=== PATIENT | male | born 1975 | race Asian ===

== ENCOUNTER 2023-10-30 12:28 | Inpatient (IN) | payer OTHER ==
[2023-10-30] VITALS (11 sets, daily range): BP systolic 105–155; BP diastolic 40–91; PULSE 86–100; RESP 15–28; TEMP 97.7–98.3
[~2023-10-30] VITALS: Ht 180.3 cm; Wt 109.0 kg
[2023-10-30] MEDS ORDERED: ATORVASTATIN CALCIUM 40 MG TABLET PO ONE (12:45)
[2023-10-30] MEDS ORDERED: TICAGRELOR 90 MG TABLET PO ONE (12:45)
[2023-10-30] MEDS ORDERED: ASPIRIN 325 MG TABLET PO ONE (12:45)
[2023-10-30] MEDS ORDERED: HEPARIN SODIUM,PORCINE 5,000 UNITS/ML VIAL IVP ONE (12:45)
[2023-10-30 12:48] LABS: EOSINOPHILS % (AUTO) 1.1 % (1.0-6.0); HEMATOCRIT 43.7 % (41-53); HEMOGLOBIN 14.5 g/dL (13.5-17.5); LYMPHOCYTES % (AUTO) 18.6 % (22.0-44.0); MEAN CORPUSCULAR HEMOGLOBIN 30.2 pg (26.0-34.0); MEAN CORPUSCULAR HGB CONC 33.2 G/dL (31.0-37.0); MEAN CORPUSCULAR VOLUME 91 fL (80-100); MONOCYTES # (AUTO) 0.9 K/uL (0.1-1.0); NEUTROPHILS # (AUTO) 7.7 K/uL (1.8-7.7); NEUTROPHILS % (AUTO) 71.3 % (40.0-70.0); PLATELET COUNT (AUTO) 282 K/uL (150-450); RED BLOOD CELL COUNT(AUTO) 4.81 MIL/uL (4.50-5.90); RED CELL DISTRIBUTION WIDTH 14.2 % (11.5-14.5); WHITE BLOOD COUNT (AUTO) 10.7 K/uL (4.5-11.0)
[2023-10-30] MEDS ORDERED: AMLO-257 PO (12:56)
[2023-10-30] MEDS ORDERED: ALLO-97 PO (12:56)
[2023-10-30 13:01] LABS: PROTHROMBIN TIME 10.3 SEC (9.4-11.6)
[2023-10-30 13:03] LABS: ANION GAP 9 mmol/L (8-16); CALCIUM, TOTAL 9.1 mg/dL (8.8-10.5); CARBON DIOXIDE 26 mmol/L (22-29); CHLORIDE 103 mmol/L (98-107); CREATININE 1.26 mg/dL (0.60-1.30); GLOMERULAR FILTR. RATE CALC > 60 mL/min (>60); GLUCOSE,RANDOM 156 mg/dL (70-110); POTASSIUM 3.7 mmol/L (3.5-5.1); SODIUM SERUM 138 mmol/L (136-145); UREA NITROGEN, BLOOD 12 mg/dL (7-18)
[2023-10-30 13:09] LABS: ALANINE AMINOTRANSFERASE 37 U/L (12-78); ALBUMIN 3.8 g/dL (3.4-5.0); ALKALINE PHOSPHATASE 84 U/L (46-116); ASPARTATE AMINOTRANSFERASE 26 U/L (15-37); BILIRUBIN,TOTAL 0.5 mg/dL (0.1-1.0); TOTAL PROTEIN, SERUM 8.4 g/dL (6.4-8.2)
[2023-10-30 13:11] LABS: B-TYPE NATRIURETIC PEPTIDE 14 pg/mL (0-100); TROPONIN I-HIGH SENSITIVITY 30 ng/L (<76)
[2023-10-30] MEDS ORDERED: MORPHINE SULFATE 2 MG/ML SYRINGE IVP ONE (13:15)
[2023-10-30] MEDS ORDERED: FentaNYL CITRATE PF 100 MCG/2 ML VIAL ONE ×2 (13:22→14:23)
[2023-10-30] MEDS ORDERED: MIDAZOLAM HCL 2 MG/2 ML VIAL ONE (13:22)
[2023-10-30] MEDS ORDERED: FentaNYL CITRATE PF 100 MCG/2 ML VIAL IVP ONE ×3 (13:45→14:30)
[2023-10-30] MEDS ORDERED: NITROGLYCERIN/D5W 50 MG/250 ML IV BOTTLE IARTER ONE (13:45)
[2023-10-30] MEDS ORDERED: HEPARIN SODIUM,PORCINE 1,000 UNITS/ML 10 ML VIAL IVP ONE (13:45)
[2023-10-30] MEDS ORDERED: MIDAZOLAM HCL 2 MG/2 ML VIAL IVP ONE (13:45)
[2023-10-30] MEDS ORDERED: IOHEXOL 300 MG/ML 100 ML VIAL IARTER ONE ×2 (13:45→14:15)
[2023-10-30] MEDS ORDERED: LIDOCAINE 1% 30 ML/SOD BICARB 8.4% 4 ML SQ ONE (13:45)
[2023-10-30] MEDS ORDERED: HEPARIN SODIUM,PORCINE 1,000 UNITS/ML 10 ML VIAL IARTER ONE (13:45)
[2023-10-30] MEDS ORDERED: VERAPAMIL HCL 2.5 MG/ML 2 ML VIAL IARTER ONE (13:45)
[2023-10-30] MEDS ORDERED: HEPARIN SODIUM 1000 UNITS/NS 1,000 ML IARTER ONE (13:45)
[2023-10-30] MEDS ORDERED: PHENYLEPHRINE HCL IN 0.9% NACL 400 MCG/10 ML SYRINGE IVP ONE (13:49)
[2023-10-30] MEDS ORDERED: NITROGLYCERIN 400 MCG/SUBLINGUAL SPRAY 4.9 GM BOTTLE SL ONE ×2 (14:22→14:30)
[2023-10-30] MEDS ORDERED: LIDOCAINE/PF 1% 30 ML VIAL ONE (14:27)
[2023-10-30] MEDS ORDERED: HEPARIN SODIUM 1000 UNITS/NS 1,000 ML ONE (14:27)
[2023-10-30] MEDS ORDERED: SODIUM BICARBONATE 50 MEQ/50 ML VIAL ONE (14:27)
[2023-10-30] MEDS ORDERED: IOHEXOL 300 MG/ML 100 ML VIAL ONE (14:27)
[2023-10-30] MEDS ORDERED: VERAPAMIL HCL 2.5 MG/ML 2 ML VIAL ONE (14:29)
[2023-10-30] MEDS ORDERED: NITROGLYCERIN 50 MG/D5% WATER 250 ML ONE (14:29)
[2023-10-30] MEDS ORDERED: MAGNESIUM HYDROXIDE SUSPENSION 30 ML UDCUP PO PRN (15:00)
[2023-10-30] MEDS ORDERED: ONDANSETRON HCL 4 MG/2 ML VIAL IVP PRN (15:00)
[2023-10-30] MEDS ORDERED: ZOLPIDEM TARTRATE 5 MG TABLET PO PRN (15:00)
[2023-10-30] MEDS ORDERED: HYDROCODONE/ACETAMINOPHEN 5-325 MG TABLET PO PRN (15:00)
[2023-10-30] MEDS ORDERED: ACETAMINOPHEN 325 MG TABLET PO PRN (15:00)
[2023-10-30] MEDS ORDERED: BISACODYL 10 MG RECTAL RECTAL SUPPOSITORY PR PRN (15:00)
[2023-10-30] MEDS ORDERED: MORPHINE SULFATE 2 MG/ML SYRINGE IVP PRN (15:00)
[2023-10-30] MEDS: DOCUSATE SODIUM 100 MG CAPSULE PO SCH (20:34)
[2023-10-30] MEDS: METOPROLOL TARTRATE 25 MG TABLET PO SCH (20:35)
[2023-10-30] MEDS: TICAGRELOR 90 MG TABLET PO SCH (20:35)
[2023-10-30 21:41] LABS: TROPONIN I-HIGH SENSITIVITY > 25000 ng/L (<76)
[2023-10-30] MEDS ORDERED: MAGNESIUM SULFATE 4 GM/WATER 100 ML IV PRN (22:00)
[2023-10-30] MEDS ORDERED: POTASSIUM CHLORIDE 20 MEQ ER TABLET PO PRN ×2 (22:00)
[2023-10-30] MEDS ORDERED: POTASSIUM CHL 10 MEQ/WATER 50 ML IV PRN (22:00)
[2023-10-30] MEDS ORDERED: MAGNESIUM SULFATE 2 GM/WATER 50 ML IV PRN (22:00)
[2023-10-30 22:03] LABS: ANION GAP 13 mmol/L (8-16); CALCIUM, TOTAL 9.1 mg/dL (8.8-10.5); CARBON DIOXIDE 22 mmol/L (22-29); CHLORIDE 106 mmol/L (98-107); CREATININE 1.22 mg/dL (0.60-1.30); GLOMERULAR FILTR. RATE CALC > 60 mL/min (>60); GLUCOSE,RANDOM 146 mg/dL (70-110); POTASSIUM 4.3 mmol/L (3.5-5.1); SODIUM SERUM 141 mmol/L (136-145); UREA NITROGEN, BLOOD 12 mg/dL (7-18)
[2023-10-31] VITALS (8 sets, daily range): BP systolic 102–114; BP diastolic 65–73; PULSE 84–103; RESP 16–19; TEMP 98.4–98.8
[2023-10-31] MEDS ORDERED: SODIUM CHLORIDE 0.9% 250 ML IV ONE (00:11)
[2023-10-31 05:59] LABS: BASOPHILS % (AUTO) 0.2 % (0.0-2.0); EOSINOPHILS % (AUTO) 0.1 % (1.0-6.0); HEMATOCRIT 43.7 % (41-53); HEMOGLOBIN 14.7 g/dL (13.5-17.5); LYMPHOCYTES # (AUTO) 1.3 K/uL (1.0-4.8); LYMPHOCYTES % (AUTO) 8.3 % (22.0-44.0); MEAN CORPUSCULAR HEMOGLOBIN 30.5 pg (26.0-34.0); MEAN CORPUSCULAR HGB CONC 33.7 G/dL (31.0-37.0); MEAN CORPUSCULAR VOLUME 91 fL (80-100); MONOCYTES % (AUTO) 6.3 % (2.0-9.0); NEUTROPHILS # (AUTO) 13.4 K/uL (1.8-7.7); NEUTROPHILS % (AUTO) 85.1 % (40.0-70.0); PLATELET COUNT (AUTO) 288 K/uL (150-450); RED BLOOD CELL COUNT(AUTO) 4.82 MIL/uL (4.50-5.90); RED CELL DISTRIBUTION WIDTH 14.2 % (11.5-14.5); WHITE BLOOD COUNT (AUTO) 15.7 K/uL (4.5-11.0)
[2023-10-31 06:09] LABS: HEMOGLOBIN A1C 6.5 % (3.8-5.6)
[2023-10-31 06:21] LABS: CHOL/HDL RATIO 3.7 (4.2-7.3); CREATININE 1.33 mg/dL (0.60-1.30); THYROID STIMULATING HORMONE 2.09 uIU/mL (0.36-3.74)
[2023-10-31 06:43] LABS: RBC MORPHOLOGY COMMENT NORMAL RBC MORPH
[2023-10-31 07:59] LABS: TROPONIN I-HIGH SENSITIVITY > 25000 ng/L (<76)
[2023-10-31] MEDS: METOPROLOL TARTRATE 25 MG TABLET PO SCH ×2 (08:45→20:07)
[2023-10-31] MEDS: ASPIRIN 81 MG DR TABLET PO SCH (08:45)
[2023-10-31] MEDS: ATORVASTATIN CALCIUM 40 MG TABLET PO SCH (08:45)
[2023-10-31] MEDS: PANTOPRAZOLE SODIUM 40 MG DR TABLET PO SCH (08:45)
[2023-10-31] MEDS: TICAGRELOR 90 MG TABLET PO SCH ×2 (08:46→20:07)
[2023-10-31] MEDS: DOCUSATE SODIUM 100 MG CAPSULE PO SCH ×2 (08:49→21:00)
[2023-10-31] MEDS ORDERED: ASPIRIN 81 MG CHEWABLE TABLET PO SCH (09:00)
[2023-10-31] MEDS ORDERED: ALLO300T2 PO (11:34)
[2023-10-31] MEDS ORDERED: AMLO-383 PO (11:34)
[2023-10-31] MEDS ORDERED: PERFLUTREN PROTEIN-A MICROSPHERES 0.22 MG/ML 3 ML VIAL IVP ONE (11:45)
[2023-11-01] VITALS (10 sets, daily range): BP systolic 87–110; BP diastolic 45–67; PULSE 85–96; RESP 18–20; TEMP 98.1–101.1
[2023-11-01 06:32] LABS: BASOPHILS % (AUTO) 0.4 % (0.0-2.0); EOSINOPHILS % (AUTO) 0.6 % (1.0-6.0); HEMATOCRIT 42.5 % (41-53); HEMOGLOBIN 14.1 g/dL (13.5-17.5); LYMPHOCYTES # (AUTO) 1.7 K/uL (1.0-4.8); LYMPHOCYTES % (AUTO) 14.5 % (22.0-44.0); MEAN CORPUSCULAR HGB CONC 33.1 G/dL (31.0-37.0); MEAN CORPUSCULAR VOLUME 91 fL (80-100); MONOCYTES # (AUTO) 1.1 K/uL (0.1-1.0); MONOCYTES % (AUTO) 9.5 % (2.0-9.0); NEUTROPHILS # (AUTO) 8.6 K/uL (1.8-7.7); PLATELET COUNT (AUTO) 239 K/uL (150-450); RED BLOOD CELL COUNT(AUTO) 4.69 MIL/uL (4.50-5.90); RED CELL DISTRIBUTION WIDTH 14.2 % (11.5-14.5); WHITE BLOOD COUNT (AUTO) 11.5 K/uL (4.5-11.0)
[2023-11-01 07:14] LABS: CALCIUM, TOTAL 8.5 mg/dL (8.8-10.5); CREATININE 1.49 mg/dL (0.60-1.30); POTASSIUM 3.8 mmol/L (3.5-5.1)
[2023-11-01 07:26] LABS: TROPONIN I-HIGH SENSITIVITY > 25000 ng/L (<76)
[2023-11-01] MEDS: TICAGRELOR 90 MG TABLET PO SCH ×2 (08:09→20:10)
[2023-11-01] MEDS: DOCUSATE SODIUM 100 MG CAPSULE PO SCH ×2 (08:09→20:10)
[2023-11-01] MEDS: PANTOPRAZOLE SODIUM 40 MG DR TABLET PO SCH (08:10)
[2023-11-01] MEDS: ASPIRIN 81 MG DR TABLET PO SCH (08:10)
[2023-11-01] MEDS: METOPROLOL TARTRATE 25 MG TABLET PO SCH (08:11)
[2023-11-01] MEDS: ATORVASTATIN CALCIUM 40 MG TABLET PO SCH (08:12)
[2023-11-01] MEDS ORDERED: LOSARTAN POTASSIUM 25 MG TABLET PO SCH (09:00)
[2023-11-01] MEDS ORDERED: SODIUM CHLORIDE 0.9% 500 ML IV ONE ×2 (15:45→17:30)
[2023-11-01] MEDS ORDERED: *CLINICAL-LEVOFLOXACIN IVPB DOSING CLINICAL ONE (17:30)
[2023-11-01 18:46] LABS: LACTIC ACID 1.5 mmol/L (0.4-2.0)
[2023-11-01 19:42] LABS: COVID AG,FIA SOURCE NASAL SWAB
[2023-11-01 19:44] LABS: APPEARANCE,URINE CLEAR (CLEAR); BILIRUBIN,URINE NEGATIVE (NEGATIVE); COLOR,URINE YELLOW (YELLOW); GLUCOSE, URINE (UA) NEGATIVE (NEGATIVE); KETONES,URINE NEGATIVE (NEGATIVE); LEUKOCYTE ESTERASE ,URINE NEGATIVE (NEGATIVE); NITRATE,URINE NEGATIVE (NEGATIVE); OCCULT BLOOD,URINE NEGATIVE (NEGATIVE); PROTEIN,URINE NEGATIVE (NEGATIVE); SPECIFIC GRAVITIY, URINE 1.022 (1.003-1.030)
[2023-11-01] MEDS: LEVOFLOXACIN 750 MG/D5% WATER 150 ML IV SCH (19:49)
[2023-11-01 19:52] LABS: RBC,URINE None Seen /HPF (0-2)
[2023-11-01 19:53] LABS: BACTERIA,URINE None Seen /HPF (None Seen); SQUAMOUS EPITHELIAL CELL,UR Rare /LPF (None Seen); WBC,URINE None Seen /HPF (0-5)
[2023-11-01 20:01] LABS: SARS-COV2 (COVID) ANTIGEN,FIA Negative (Negative)
[2023-11-02] VITALS (7 sets, daily range): BP systolic 75–122; BP diastolic 43–74; PULSE 89–99; RESP 18–19; TEMP 98–99.6
[2023-11-02 06:52] LABS: BASOPHILS % (AUTO) 0.4 % (0.0-2.0); EOSINOPHILS % (AUTO) 1.2 % (1.0-6.0); HEMATOCRIT 39.2 % (41-53); HEMOGLOBIN 13.1 g/dL (13.5-17.5); LYMPHOCYTES # (AUTO) 1.1 K/uL (1.0-4.8); LYMPHOCYTES % (AUTO) 9.4 % (22.0-44.0); MEAN CORPUSCULAR HEMOGLOBIN 30.1 pg (26.0-34.0); MEAN CORPUSCULAR HGB CONC 33.3 G/dL (31.0-37.0); MEAN CORPUSCULAR VOLUME 90 fL (80-100); MONOCYTES # (AUTO) 1.3 K/uL (0.1-1.0); MONOCYTES % (AUTO) 11.3 % (2.0-9.0); NEUTROPHILS # (AUTO) 8.7 K/uL (1.8-7.7); NEUTROPHILS % (AUTO) 77.7 % (40.0-70.0); PLATELET COUNT (AUTO) 215 K/uL (150-450); RED BLOOD CELL COUNT(AUTO) 4.34 MIL/uL (4.50-5.90); RED CELL DISTRIBUTION WIDTH 13.8 % (11.5-14.5); WHITE BLOOD COUNT (AUTO) 11.2 K/uL (4.5-11.0)
[2023-11-02 07:05] LABS: ANION GAP 11 mmol/L (8-16); CARBON DIOXIDE 24 mmol/L (22-29); CHLORIDE 103 mmol/L (98-107); CREATININE 1.24 mg/dL (0.60-1.30); GLOMERULAR FILTR. RATE CALC > 60 mL/min (>60); GLUCOSE,RANDOM 124 mg/dL (70-110); POTASSIUM 3.7 mmol/L (3.5-5.1); SODIUM SERUM 138 mmol/L (136-145); UREA NITROGEN, BLOOD 15 mg/dL (7-18)
[2023-11-02 07:21] LABS: TROPONIN I-HIGH SENSITIVITY > 25000 ng/L (<76)
[2023-11-02] MEDS: TICAGRELOR 90 MG TABLET PO SCH ×2 (08:18→20:11)
[2023-11-02] MEDS: ATORVASTATIN CALCIUM 40 MG TABLET PO SCH (08:18)
[2023-11-02] MEDS: ASPIRIN 81 MG DR TABLET PO SCH (08:18)
[2023-11-02] MEDS: PANTOPRAZOLE SODIUM 40 MG DR TABLET PO SCH (08:18)
[2023-11-02] MEDS: DOCUSATE SODIUM 100 MG CAPSULE PO SCH ×2 (08:18→20:12)
[2023-11-02 11:15] LABS: INFLUENZA TYPE A NEGATIVE FOR TYPE A (NEGATIVE); INFLUENZA TYPE B NEGATIVE FOR TYPE B (NEGATIVE)
[2023-11-02] MEDS: LEVOFLOXACIN 750 MG/D5% WATER 150 ML IV SCH (17:08)
[2023-11-03 00:08] VITALS: BP 114/71; PULSE 74; RESP 18; TEMP 98.8
[2023-11-03 06:25] VITALS: BP 98/67; PULSE 88; RESP 18; TEMP 98.8
[2023-11-03 07:08] VITALS: BP 124/74; PULSE 91; RESP 18; TEMP 98.6
[2023-11-03 07:16] LABS: BASOPHILS % (AUTO) 0.5 % (0.0-2.0); EOSINOPHILS % (AUTO) 2.4 % (1.0-6.0); HEMATOCRIT 37.5 % (41-53); HEMOGLOBIN 13.1 g/dL (13.5-17.5); LYMPHOCYTES % (AUTO) 12.3 % (22.0-44.0); MEAN CORPUSCULAR HEMOGLOBIN 31.3 pg (26.0-34.0); MEAN CORPUSCULAR HGB CONC 34.8 G/dL (31.0-37.0); MEAN CORPUSCULAR VOLUME 90 fL (80-100); MONOCYTES # (AUTO) 0.8 K/uL (0.1-1.0); MONOCYTES % (AUTO) 10.4 % (2.0-9.0); NEUTROPHILS # (AUTO) 6.1 K/uL (1.8-7.7); NEUTROPHILS % (AUTO) 74.4 % (40.0-70.0); PLATELET COUNT (AUTO) 220 K/uL (150-450); RED BLOOD CELL COUNT(AUTO) 4.17 MIL/uL (4.50-5.90); RED CELL DISTRIBUTION WIDTH 13.9 % (11.5-14.5); WHITE BLOOD COUNT (AUTO) 8.1 K/uL (4.5-11.0)
[2023-11-03 07:47] LABS: ANION GAP 10 mmol/L (8-16); CALCIUM, TOTAL 8.2 mg/dL (8.8-10.5); CARBON DIOXIDE 24 mmol/L (22-29); CHLORIDE 103 mmol/L (98-107); CREATININE 1.19 mg/dL (0.60-1.30); GLOMERULAR FILTR. RATE CALC > 60 mL/min (>60); GLUCOSE,RANDOM 126 mg/dL (70-110); POTASSIUM 3.6 mmol/L (3.5-5.1); SODIUM SERUM 137 mmol/L (136-145); UREA NITROGEN, BLOOD 11 mg/dL (7-18)
[2023-11-03] MEDS: PANTOPRAZOLE SODIUM 40 MG DR TABLET PO SCH (08:08)
[2023-11-03] MEDS: DOCUSATE SODIUM 100 MG CAPSULE PO SCH (08:08)
[2023-11-03] MEDS: TICAGRELOR 90 MG TABLET PO SCH (08:08)
[2023-11-03] MEDS: ASPIRIN 81 MG DR TABLET PO SCH (08:09)
[2023-11-03] MEDS: ATORVASTATIN CALCIUM 40 MG TABLET PO SCH (08:38)
[2023-11-03 11:21] VITALS: BP 105/71; PULSE 86; RESP 18; TEMP 98
[2023-11-03] MEDS ORDERED: LEVO750T68 PO (12:45)
[2023-11-03] MEDS ORDERED: ASPI-1444 PO (12:45)
[2023-11-03] MEDS ORDERED: TICA90TA PO (12:45)
[2023-11-03] MEDS ORDERED: ATOR40TA71 PO (12:45)
[2023-11-03] MEDS ORDERED: METO25XL PO (13:35)
[2023-11-03] MEDS ORDERED: OMEP20 PO (13:49)
== END 2023-11-03 15:45 | disposition home or self-care (01) | DRG 321 ==
LOC: EMS 12:28 → ICU 13:31 → 5S 10-31 10:25
PROVIDERS: ADMIT Internal Medicine; ATTEND Internal Medicine
PROC: 027035Z Dilation of Coronary Artery, One Artery with Two Drug-eluting Intraluminal Devices, Percutaneous Approach (ICD-10-PCS; principal; 2023-10-30)
PROC: 4A023N7 Measurement of Cardiac Sampling and Pressure, Left Heart, Percutaneous Approach (ICD-10-PCS; 2023-10-30)
PROC: B2111ZZ Fluoroscopy of Multiple Coronary Arteries using Low Osmolar Contrast (ICD-10-PCS; 2023-10-30)
DX: I21.3 ST elevation (STEMI) myocardial infarction of unspecified site (principal); I50.21 Acute systolic (congestive) heart failure; N17.0 Acute kidney failure with tubular necrosis; J18.9 Pneumonia, unspecified organism; I47.20 Ventricular tachycardia, unspecified; M10.9 Gout, unspecified; I11.0 Hypertensive heart disease with heart failure; I95.9 Hypotension, unspecified; Z20.822 Contact with and (suspected) exposure to COVID-19
CPT/HCPCS: 71045; 80048; 80053; 80061; 81001; 83036; 83605; 83735; 83880; 84443; 84484; 85025; 85610; 85730; 87040; 87081; 87804; 92920; 92928; 93005; 93306; 93308; 99291; C8929; J1644; J1956; J2250; J2270; J2405; J3010; J3475; J3490; J7050; Q9967; 36415-L1; 36415-TC; C8928; Z7610